=== PATIENT | female | born 1985 | race Caucasian/White ===

== ENCOUNTER 2017-03-09 19:59 | Emergency (ER) | payer OTHER ==
[~2017-03-09] VITALS: Ht 167.6 cm; Wt 112.1 kg
[~2017-03-09 19:59] MED LIST: CYCL-36 PO; IBUP600 PO
[2017-03-09 20:06] VITALS: BP 131/86; PULSE 70; RESP 16; TEMP 98.4; O2SAT 100
[2017-03-09] MEDS ORDERED: ROBA500T PO (20:26)
[2017-03-09] MEDS ORDERED: IBUP1TAB7 PO (20:26)
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
== END 2017-03-09 20:38 | disposition home or self-care (01) ==
LOC: PHEFT 19:59
DX: S46.812A Strain of other muscles, fascia and tendons at shoulder and upper arm level, left arm, initial encounter (principal); S39.012A Strain of muscle, fascia and tendon of lower back, initial encounter; M54.32 Sciatica, left side; V43.52XA Car driver injured in collision with other type car in traffic accident, initial encounter
CPT/HCPCS: 99283